=== PATIENT | male | born 1985 | race Caucasian/White ===

== ENCOUNTER 2021-04-21 19:22 | Emergency (ER) | payer BC, SELFPAY ==
[2021-04-21 19:23] VITALS: BP 133/89; PULSE 132; RESP 18; TEMP 38.8; O2SAT 98; BMI 35.6
[2021-04-21 20:39] LABS: Absolute Neutrophil Count 12.6 X10^3/uL (2.0-7.7); Basophil# 0.05 X10^3/uL; Basophil% 0.3 % (0-1); Eosinophil# 0.01 X10^3/uL; Eosinophils% 0.1 % (0-5); Hematocrit 48.5 % (40-54); Hemoglobin 15.9 g/dL (13.0-16.5); Lymphocyte % 7.5 % (19-41); Mean Corp Hgb Conc 32.8 g/dL (32-36); Mean Corpuscular Hgb 26.4 pg (27.0-32.0); Mean Corpuscular Volume 80.4 fL (80-94); Mean Platelet Vol. 8.7 fl (6.2-12.0); Monocyte# 0.88 X10^3/uL; NRBC Flagged by Analyzer 0 % (0-5); Neutrophil # 12.58 X10^3/uL (2.7-7.7); Neutrophil % 85.8 % (47-70); Platelet Count 252 K/mm3 (150-450); RBC Distribution Width CV 13.5 % (11.6-14.6); RBC Distribution Width SD 39.3 fl (35.1-43.9); Red Blood Count 6.03 M/mm3 (4.6-6.2); White Blood Count 14.7 K/mm3 (4.4-11.0)
--- NOTE | 2021-04-21 21:11 | EX.ED.DYSGE1 ---
HPI History of Present Illness Chief Complaint: Cellulitis Informant: patient Onset/Context/Timing Onset: Yesterday Context: Gradual Onset Quality: Itchy redness Location: Right lower leg and ascending toward knee Current Severity: Mild Maximum Severity: Mild Worsened by: Nothing Relieved by: Nothing Associated Symptoms Associated Symptoms: Nothing Narrative Narrative: Patient states spontaneous onset of redness that started near his sock line and has been ascending toward the knee today. Denies any systemic symptoms or fevers that he knows of but he had one here in triage at 101.8. Denies any cough, Covid exposure that he knows of, myalgias, or any pain even in his leg. He states it itches but it is not painful. He denies any exposures to the skin that he knows of. He denies any foot issues except for chronic thickening of the nail there that he tried a cream on but did not help. PFSH PFSH no medical history Home Medications cephalexin 500 mg PO Q6 #40 capsule 04/21/21 [Rx Last Taken Unknown] Allergy/AdvReac Type Severity Reaction Status Date / Time naproxen [From Naprosyn] Allergy Swelling Verified 04/21/21 19:25 [facility] ED Constitutional Constitutional ED: Denies body ache(s), chills, fever(s), malaise or weakness Eyes Eyes: Denies change in vision or diplopia ENT ENT ED: Denies rhinorrhea or sore throat Cardiovascular Cardiovascular: Denies chest pain or palpitations Respiratory/Chest Respiratory/Chest: Denies cough or dyspnea Gastrointestinal Gastrointestinal: Denies abdominal pain, diarrhea, nausea or vomiting Genitourinary Genitourinary ED: Denies dysuria or hematuria Musculoskeletal Musculoskeletal: Denies back pain or neck pain Integumentary Reports rash; Denies abscess Neurologic Neurologic: Denies headache(s), paresthesias or weakness Psychiatric Psychiatric: Denies anxiety or suicidal thoughts EXAM Physical Exam Const Vital Signs: 04/21/21 19:23 Temperature 101.8 F H Temperature Source Temporal Pulse Rate 132 H Respiratory Rate 18 Blood Pressure 133/89 H Blood Pressure Mean 103 Pulse Ox 98 Oxygen Delivery Method Room Air Positive well nourished and well developed General Appearance ED: well developed and NAD HEENT Reports moist mucous membranes normocephalic and atraumatic Eyes PERRL and EOMs intact bilaterally Neck full ROM and supple Resp normal respiratory effort Extremity Extremity Narrative: Patient with erythema that is mildly raised and warm right lower leg that starts at the sock line and goes up toward the knee where it starts to get patchy. Mostly anteriorly, there are a couple of small erythematous areas in the calf, no palpable cords, none of it is tender. No nidus for infection. No other lesions, no bullae. All compartments soft and nondistended and nontender. No calf tenderness. No lymphangitis. General Extremety ED: Negative for edema, pulses abnormal or tenderness General Extremity: Negative for edema or pulses abnormal Neuro oriented x3, CN's II-XII intact bilaterally and no sensory deficits noted Sensorium / Orientation: awake and alert Motor Exam: strength 5/5 throughout Skin no wounds Skin Narrative: Erythema as noted above on the right lower leg only. No inguinal lymphadenopathy. The erythema is warm and nontender. Negative Nik[place]ky. No bullae no petechia. MDM MDM MDM Narrative Medical decision making narrative: Patient does have a leukocytosis, and although this erythema is nontender, and he has no other symptoms I think it would be reasonable to treat as cellulitis. Since he has a leukocytosis very unlikely that his fever is related to Covid, he does not have any other symptoms. Clinically the patient is very well and is not clinically septic. Gave him an injection of Ancef here and started him on cephalexin, this is consistent with erysipelas in appearance, advised to take and complete the prescription if he gets worse, advised to come back to the ER. He is comfortable with that plan. Lab Data Attestation: I reviewed the patient's lab results. Labs: Laboratory Results - last 24 hr 04/21/21 20:25 WBC 14.7 H RBC 6.03 Hgb 15.9 Hct 48.5 MCV 80.4 MCH 26.4 L MCHC 32.8 RDW Std Deviation 39.3 RDW Coeff of [place] 13.5 Plt Count 252 MPV 8.7 Immature Gran % (Auto) 0.300 Neut % (Auto) 85.8 H Lymph % (Auto) 7.5 L [place] % (Auto) 6.0 Eos % (Auto) 0.1 Baso % (Auto) 0.3 Absolute Neuts (auto) 12.6 H Absolute Lymphs (auto) 1.10 Nucleated RBC % 0 Discharge Plan Triage Chief Complaint: Cellulitis ED Provider: Gage Osman Dx/Rx/DC Orders Clinical Impression: Cellulitis of right lower leg Instructions: ED Cellulitis Prescriptions: New cephalexin [cephalexin] 500 MG capsule 500 mg PO Q6 Qty: 40 RF: 0 Primary Care Provider: Care Physician,No Primary Referrals: Adriane Begum MD [STAFF PHYSICIAN] - 3-5 Days if not improving Care Physician,No Primary [Primary Care Provider] - Disposition Disposition: Home, Self Care
[2021-04-21 21:18] LABS: Anion Gap 5 (5-15); BUN 12 mg/dL (7-18); BUN/Creat Ratio 11.3 RATIO (10-20); Calcium,Total 9.5 mg/dL (8.5-10.1); Chloride 100 mmol/L (98-107); Creatinine, Serum 1.06 mg/dL (0.70-1.30); EST Glomerular Filtration Rate 84 mL/min (>60); Est Glom Filt Rate - Afr Amer 102 mL/min (>60); Estimated Creatinine Clearance 108.88 ml/min; Glucose 148 mg/dL (74-106); Potassium 4.2 mmol/L (3.5-5.1); Sodium Level 135 mmol/L (136-145)
[2021-04-21] MEDS: Acetaminophen 500 MG Tablet 1000 MG PO (21:52)
[2021-04-21] MEDS: Cephalexin 250 MG Capsule 500 MG PO (21:53)
[2021-04-21] MEDS: Cefazolin 1 GM/5 ML Vial IM (21:53)
[2021-04-21 21:56] VITALS: BP 134/80; PULSE 85; PULSE 86; RESP 14; RESP 15; O2SAT 98
== END 2021-04-21 22:17 | disposition home or self-care (01) ==
PROVIDERS: Emergency Provider Emergency Medicine
DX: L03.115 Cellulitis of right lower limb (principal); Z79.1 Long term (current) use of non-steroidal anti-inflammatories (NSAID)
CPT/HCPCS: 80048; 85025; 99284